=== PATIENT | female | born 1995 | race Caucasian/White ===

== ENCOUNTER 2018-03-29 21:48 | Emergency (ER) | payer SELFPAY ==
[~2018-03-29] VITALS: Ht 165.1 cm; Wt 48.6 kg
[2018-03-29 22:15] VITALS: BP 140/90
--- NOTE | 2018-03-29 22:24 | NUR ---
PATIENT TO CHAIR Garcia
--- NOTE | 2018-03-29 22:24 | NUR ---
TO ER CHAIR D
--- NOTE | 2018-03-29 22:25 | NUR ---
PATIENT PRESENTS TO ED WITH C/O DYSURIA AND HEMATURIA X 4 HOURS . PT DENIES N/V/D; SKIN IS PINK/WARM/DRY; AAOX4 WITH EVEN AND STEADY GAIT; LUNGS CLEAR BL; HR EVEN AND REGULAR; PT DENIES ANY FEVER, CP, SOB, OR COUGH AT THIS TIME; PATIENT STATES PAIN OF 8/10 AT THIS TIME; VSS; PATIENT POSITIONED FOR COMFORT; HOB ELEVATED; BEDRAILS UP X2; BED DOWN. ER MD MADE AWARE OF PT STATUS.
[2018-03-29 22:34] VITALS: BP 140/90
--- NOTE | 2018-03-29 22:53 | NUR ---
Patient discharged with v/s stable. Written and verbal after care instructions given and explained. Patient alert, oriented and verbalized understanding of instructions. Ambulatory with steady gait. All questions addressed prior to discharge. ID band removed. Patient advised to follow up with PMD. Rx of MACROBID 100MG, PYRIDIUM 200MG given. Patient educated on indication of medication including possible reaction and side effects. Opportunity to ask questions provided and answered.
== END 2018-03-29 22:50 | disposition home or self-care (01) ==
LOC: MED 21:48
DX: N39.0 Urinary tract infection, site not specified (principal)
CPT/HCPCS: 81002; 81025; 99283